=== PATIENT | female | born 1990 | race Caucasian/White ===

== ENCOUNTER 2018-10-14 11:52 | Day surgery (SDC) | payer BC ==
--- NOTE | 2018-10-14 13:46 | Anesthesia Day of Surgery ---
Anesthesia Day of Surgery - Day of Surgery Patient Examined: Yes Patient H&P Reviewed: Yes Patient is NPO: Yes
--- NOTE | 2018-10-14 13:47 | Anesthesia Consultation ---
Anesthesia Consult and Med Hx Date of service: 10/14/18 - Airway Anesthetic Teeth Evaluation: Good ROM Head & Neck: Adequate Mental/Hyoid Distance: Adequate Mallampati Class: Class I Intubation Access Assessment: Good - Pre-Operative Health Status ASA Pre-Surgery Classification: ASA1 Proposed Anesthetic Plan: MAC (HCG NEGATIVE)
[2018-10-14] MEDS ORDERED: NACL 0.9% 1000 ML 1,000 ML IV SCH (14:00)
[2018-10-14] MEDS ORDERED: DIPRIVAN 10 MG/ML IV ONE (15:11)
[2018-10-14] MEDS ORDERED: XYLOCAINE 1% 20 mL ONE (15:11)
--- NOTE | 2018-10-14 15:20 | Operative Report ---
Operative Report Operative Report: Date: 10/14/2018 Operative Report: Date of procedure: 12/27/2017 Procedure: Esophagogastroduodenoscopy with multiple mucosal biopsies. Attending physician: Brian Solis MD Leading Firefighter: Brian Solis MD Indication: Patient is a 28 -year-old female who presented with a history of recurrent epigastric pain, nausea and vomiting. An upper endoscopy is done to assess patient, so that treatment may be directed based on the findings. Consent: Informed consent was obtained after advising the patient and family regarding nature of this procedure, its indications, potential benefits as well as possible complications including but not limited to bleeding perforation and adverse reaction to medication, infection as well as other cardiopulmonary complications. An informed written and verbal consent was then obtained after due opportunity was provided for questions and answers. Monitoring: Patient was monitored continuously with pulse oximetry and electrocardiographic recordings as well as blood pressure recordings. Vital signs remained stable throughout this procedure with no untoward events. Preoperative assessment: Patient was assessed immediately prior to this procedure for capacity to tolerate monitored anesthesia care and moderate sedation as well as general anesthesia. Patient's ASA classification is 3, Mallampati class is 2, Hyomental distance is 3. Instrument: Olympus video endoscope: [id number] Medications: Propofol given intravenously in divided doses. For details please refer to anesthesia records. Description of procedure: Patient was placed in the left lateral decubitus position after achieving sedation, the endoscope was introduced into the esophagus under direct vision. It was then advanced beyond the esophagus into the stomach and then beyond the stomach into the duodenum and to the second portion of the duodenum. It was subsequently withdrawn with careful inspection of all mucosal surfaces with the following findings. Findings: The Z line at 38 cm. Patient had multiple gastric antral erosions with erythema seen. Biopsies were obtained from the antrum for histopathology. The pylorus was patulous The duodenum was normal to the second portion Impression: Multiple gastric antral erosions Past antral erythema Patulous pyloric channel Plan:Follow pathology report. Direct additional treatment based on the pathology report. Patient will be observed clinically.
--- NOTE | 2018-10-14 15:21 | Discharge Summary ---
Short Stay Discharge Plan Activity: advance as tolerated Weight Bearing Status: Weight Bear as Tolerated Diet: regular Follow up with: ROBERTO QUIJANO MD [Primary Care Provider] - 7 Days
[2018-10-14 15:56] VITALS: BP 102/62
== END 2018-10-14 11:53 | disposition home or self-care (01) ==
LOC: GIO 11:52
PROVIDERS: ATTEND Internal Medicine Gastroenterology
DX: K29.50 Unspecified chronic gastritis without bleeding (principal); Z88.2 Allergy status to sulfonamides; Z88.8 Allergy status to other drugs, medicaments and biological substances; Z79.899 Other long term (current) drug therapy; Z98.890 Other specified postprocedural states
CPT/HCPCS: 43239; 81025; 88305; 88342; J2704; J7030